=== PATIENT | female | born 1975 | race Caucasian/White ===

== ENCOUNTER 2017-01-27 11:42 | Emergency (ER) | payer MEDICAID ==
[~2017-01-27] VITALS: Ht 165.1 cm; Wt 109.0 kg
[2017-01-27 11:44] VITALS: BP 109/69
== END 2017-01-27 12:48 | disposition home or self-care (01) ==
LOC: ED 12:45
DX: S80.861A Insect bite (nonvenomous), right lower leg, initial encounter (principal); L03.115 Cellulitis of right lower limb; Z90.710 Acquired absence of both cervix and uterus; W57.XXXA Bitten or stung by nonvenomous insect and other nonvenomous arthropods, initial encounter; Y93.89 Activity, other specified; Y92.89 Other specified places as the place of occurrence of the external cause; Y99.8 Other external cause status
CPT/HCPCS: 99283

== ENCOUNTER 2017-05-16 19:07 | Emergency (ER) | payer MEDICAID ==
[~2017-05-16] VITALS: Ht 165.1 cm; Wt 110.7 kg
[2017-05-16 19:08] VITALS: BP 139/83
== END 2017-05-16 19:49 | disposition home or self-care (01) ==
LOC: ED 19:30
DX: K02.9 Dental caries, unspecified (principal)
CPT/HCPCS: 99283

== ENCOUNTER 2017-12-06 16:53 | Emergency (ER) | payer MEDICAID ==
[~2017-12-06] VITALS: Ht 165.1 cm; Wt 111.4 kg
[2017-12-06 16:56] VITALS: BP 139/63
[2017-12-06] MEDS ORDERED: KETOROLAC 30 MG/1 ML ONE (17:40)
[2017-12-06] MEDS ORDERED: RANI150T23 PO (17:47)
[2017-12-06] MEDS ORDERED: IBUP-1222 PO (17:47)
[2017-12-06] MEDS ORDERED: FEXO1TAB29 PO (17:47)
[2017-12-06] MEDS ORDERED: KETOROLAC 60 MG/2 ML IM ONE (18:00)
== END 2017-12-06 18:48 | disposition home or self-care (01) ==
LOC: ED 18:09
DX: M54.5 Low back pain (principal)
CPT/HCPCS: 96372; 99283; J1885

== ENCOUNTER 2019-05-18 11:13 | Emergency (ER) | payer MEDICAID ==
[~2019-05-18] VITALS: Ht 165.1 cm; Wt 94.8 kg
[~2019-05-18 11:13] MED LIST: FEXO1TAB29 PO; IBUP-1222 PO; RANI-467 PO
[2019-05-18 11:52] VITALS: BP 105/52
--- NOTE | 2019-05-18 12:03 | NUR ---
PT HERE WITH C/O POSSIBLE PINK EYE, PT STATES CHILD WAS DIAGNOSED 2 DAYS AGO.
--- NOTE | 2019-05-18 12:27 | NUR ---
Patient/Caregiver given discharge instructions and they have confirmed that they understand the instructions. Patient ambulatory with steady gait.
== END 2019-05-18 12:31 | disposition home or self-care (01) ==
LOC: ED 12:00
DX: H10.231 Serous conjunctivitis, except viral, right eye (principal)
CPT/HCPCS: 99283